=== PATIENT | female | born 1975 | race Two or more races ===

== ENCOUNTER 2024-11-13 15:22 | Emergency (ER) | payer MEDICAID, OTHER ==
[~2024-11-13] VITALS: Ht 177.8 cm; Wt 100.0 kg
[2024-11-13 16:33] VITALS: BP 148/82; PULSE 82; RESP 16; TEMP 98.9; O2SAT 99
--- NOTE | 2024-11-13 17:02 | DVH ---
CLINICAL INDICATION: possible fracture TECHNIQUE: 3-view XY L WRIST 3+ VIEW XRAY Comparison: None FINDINGS/IMPRESSION: : There is no evidence of acute fracture or dislocation. Soft tissues are unremarkable.
[2024-11-13] MEDS ORDERED: IBUP-1454 PO (17:07)
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
== END 2024-11-13 17:33 | disposition home or self-care (01) ==
LOC: ER 15:22
DX: S63.592A Other specified sprain of left wrist, initial encounter (principal); X58.XXXA Exposure to other specified factors, initial encounter; Y93.89 Activity, other specified; Y92.89 Other specified places as the place of occurrence of the external cause; Y99.8 Other external cause status
CPT/HCPCS: 73110

== ENCOUNTER 2024-11-18 13:07 | Inpatient (IN) | payer MEDICAID, OTHER ==
[~2024-11-18] VITALS: Ht 177.8 cm; Wt 104.9 kg
[~2024-11-18 13:07] MED LIST: IBUP-1454 PO
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
--- NOTE | 2024-11-18 13:49 | DVH ---
CHEST RADIOGRAPH Indication: CP Technique: Frontal and lateral view of the chest was obtained Comparison: None FINDINGS: Lines and Tubes: None Lungs: Mild bronchovascular crowding in the setting of hypoinflation. No evidence of focal airspace c onsolidations. Pleura: No effusion. No pneumothorax. Cardiomediastinal contours: Unremarkable Bones: No evidence of acute osseous abnormalities. Mild multilevel degenerative changes in the thor acic spine. IMPRESSION: No evidence of acute cardiopulmonary disease.
[2024-11-18 14:21] LABS: Eosinophils # (auto) 0.2 10 ^3/uL (0-0.8); Neutrophils # (auto) 4.1 10 ^3/uL (1.6-8.6); Nucleated Red Blood Cells % 0.1 %
[2024-11-18 14:23] LABS: Basophils # (auto) 0.1 10 ^3/uL (0-0.2); Basophils % (auto) 0.8 % (0.0-2.0); Eosinophils % (auto) 2.4 % (0.0-7.0); Hematocrit 37.8 % (36.0-46.0); Hemoglobin 12.3 g/dL (12.2-16.2); Lymphocytes # (auto) 1.8 10 ^3/uL (0.4-5.4); Mean Corpuscular Hemoglobin 25.5 pg (28.0-32.0); Mean Corpuscular Hgb Conc. 32.6 g/dL (32.0-36.0); Mean Corpuscular Volume 78.3 fL (80.0-100.0); Monocytes # (auto) 0.3 10 ^3/uL (0-1.3); Monocytes % (auto) 5.3 % (0.0-12.0); Neutrophils % (auto) 63.5 % (37.0-80.0); Platelet Count (auto) 185 10^3/uL (140-450); Red Blood Cells 4.82 10^6/uL (4.0-5.20); Red Cell Distribution Width 14.3 % (11.8-14.3); White Blood Cell 6.4 10^3/uL (4.4-10.8)
[2024-11-18 14:41] LABS: Alanine Aminotransferase 15 U/L (7-40); Albumin 4.1 g/dL (3.2-4.8); Alkaline Phosphatase 106 U/L (46-116); Anion Gap 6 (5-15); BUN/Creatinine Ratio 19.4 (10.0-20.0); Bilirubin, Total 0.3 mg/dL (0.2-1.0); Blood Urea Nitrogen 12 mg/dL (9-23); Calcium 9.8 mg/dL (8.7-10.4); Carbon Dioxide 30 mmol/L (20-31); Potassium 3.9 mmol/L (3.5-5.1); Sodium 143 mmol/L (136-145); Total Protein 6.8 g/dL (5.7-8.2)
[2024-11-18 14:53] LABS: Aspartate Aminotransferase 12 U/L (13-40); Chloride 107 mmol/L (98-107); Glucose 116 mg/dL (74-106)
[2024-11-18] MEDS: NITROGLYCERIN 0.4 MG SL TAB SL ONE (15:00)
[2024-11-18] MEDS: IOHEXOL 350 MG/ML 100ML IJ ONE (15:03)
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
[2024-11-18] MEDS: ASPirin-EC 325mg tab PO ONE (16:53)
[2024-11-18] MEDS ORDERED: ONDANSETRON HCL 4 MG/2 ML VIAL IV PRN (17:15)
[2024-11-18] MEDS ORDERED: MORPHINE SULFATE INJ 2 MG/ml SYRG IV PRN (17:15)
[2024-11-18] MEDS ORDERED: NITROGLYCERIN 0.4 MG SL TAB SL PRN (17:15)
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
[2024-11-18 18:31] LABS: Triglycerides 82 mg/dL (< 150)
[2024-11-18 18:32] LABS: LDL Cholesterol 98 mg/dL (< 100)
[2024-11-18 18:33] LABS: HDL Cholesterol 55 mg/dL (40-59)
[2024-11-18 18:34] LABS: Cholesterol 168 mg/dL (< 200)
[2024-11-18] MEDS: HYDROcodone-ACET 5/325MG TAB PO PRN (18:44)
[2024-11-18 20:11] LABS: Amphetamine Screen, Urine Neg (NEGATIVE); Barbiturate Scree,Urine Neg (NEGATIVE); Benzodiazephine Screen, Urine Neg (NEGATIVE); Cannabinoid Screen, Urine Neg (NEGATIVE); Cocaine Screen, Urine Neg (NEGATIVE); Opiate Scree,Urine Neg (NEGATIVE); Phencyclidine Screen, Urine Neg (NEGATIVE)
[2024-11-18 20:20] VITALS: BP 111/73; PULSE 74; RESP 16; TEMP 97.9; O2SAT 97
[2024-11-18 20:40] VITALS: BP 111/73; PULSE 74; RESP 16; TEMP 97.9; O2SAT 97
[2024-11-18 22:16] VITALS: BP 151/85; PULSE 76; RESP 18; TEMP 98.6; O2SAT 96
[2024-11-18] MEDS: ATORVASTATIN 20 MG TAB PO SCH (22:31)
[2024-11-18] MEDS: SERTRALINE HCL 50 MG TAB PO SCH (22:31)
[2024-11-18] MEDS: MORPHINE SULFATE INJ 2 MG/ml SYRG IV PRN (22:40)
[2024-11-19] VITALS (7 sets, daily range): BP systolic 121–168; BP diastolic 68–83; PULSE 67–75; RESP 18; TEMP 36.8; O2SAT 97–99
[2024-11-19 07:17] LABS: Basophils # (auto) 0 10 ^3/uL (0-0.2); Eosinophils # (auto) 0.2 10 ^3/uL (0-0.8); Hemoglobin 11.6 g/dL (12.2-16.2); Lymphocytes # (auto) 1.7 10 ^3/uL (0.4-5.4); Mean Corpuscular Hemoglobin 25.4 pg (28.0-32.0); Monocytes # (auto) 0.4 10 ^3/uL (0-1.3); Neutrophils # (auto) 3.5 10 ^3/uL (1.6-8.6); Nucleated Red Blood Cells % 0.1 %; Red Blood Cells 4.55 10^6/uL (4.0-5.20); Red Cell Distribution Width 14.4 % (11.8-14.3)
[2024-11-19 07:19] LABS: Basophils % (auto) 0.6 % (0.0-2.0); Eosinophils % (auto) 2.6 % (0.0-7.0); Hematocrit 35.7 % (36.0-46.0); Lymphocytes % (auto) 29.3 % (10.0-50.0); Mean Corpuscular Hgb Conc. 32.4 g/dL (32.0-36.0); Mean Corpuscular Volume 78.4 fL (80.0-100.0); Monocytes % (auto) 6.7 % (0.0-12.0); Neutrophils % (auto) 60.8 % (37.0-80.0); Platelet Count (auto) 154 10^3/uL (140-450); White Blood Cell 5.8 10^3/uL (4.4-10.8)
[2024-11-19 07:37] LABS: Alanine Aminotransferase 11 U/L (7-40); Albumin 3.7 g/dL (3.2-4.8); Alkaline Phosphatase 94 U/L (46-116); Anion Gap 7 (5-15); BUN/Creatinine Ratio 17.5 (10.0-20.0); Bilirubin, Total 0.5 mg/dL (0.2-1.0); Blood Urea Nitrogen 11 mg/dL (9-23); Calcium 9.5 mg/dL (8.7-10.4); Carbon Dioxide 30 mmol/L (20-31); Chloride 106 mmol/L (98-107); Glucose 95 mg/dL (74-106); Sodium 143 mmol/L (136-145); Total Protein 6.4 g/dL (5.7-8.2)
[2024-11-19 07:57] LABS: Aspartate Aminotransferase 10 U/L (13-40); Potassium 3.4 mmol/L (3.5-5.1)
[2024-11-19] MEDS: ASPirin 81 mg TAB PO SCH (09:26)
[2024-11-19] MEDS: ACETAMINOPHEN 325 MG TAB PO PRN (09:32)
[2024-11-19] MEDS: POTASSIUM EFFERVESENT TAB 25 MEQ PO ONE (12:36)
[2024-11-19] MEDS ORDERED: ACET-1882 PO (18:19)
[2024-11-19] MEDS ORDERED: IBUP1TAB5 PO (18:19)
[2024-11-19] MEDS ORDERED: PANT40T PO (18:19)
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
--- NOTE | 2024-11-20 08:18 | DVHSR ---
APPROVED REPORT EXAM: Two-dimensional and M-mode echocardiogram with Doppler and color Doppler. Blood Pressure: 127/68 mmHg INDICATION Chest Pain RISK FACTORS Height: 5' 10", Weight: 231 DIMENSIONS LVDd4.0 (3.8-5.7cm)LA (2D)4.3 (1.9-4.0cm)Aortic Root3.3 (2.0-3.7cm) LVDs2.7 (2.5-4.0cm)LA (MM) (1.9-4.0cm)Aortic Cusp Exc2.0 (1.5-2.0cm) EF (%) 63.0 (55-70%)Rt. Atrium4.3 (1.9-4.0cm)Asc. Aorta cm IVSd1.2 (0.7-1.1cm)RV (D) (1.8-2.4cm) PWd1.1 (0.7-1.1cm) Mitral Valve MitralMitral Stenosis E wave0.90m/sMV Mean GR.mmHg A wave0.90m/sMV Peak GR.mmHg E/A ratio1.02D MVAcm2 Aortic Valve Aortic ValveAortic Stenosis V10.90m/Corazon Mean GR.4mmHg V21.40m/Corazon Peak GR.9mmHg LVOT Diameter2.3 (1.8-2.4cm)Doppler AVA2.67cm2 Pulmonic Valve V20.70m/s Conclusion lvef 60% by visual estimate normal rv function but mdoerate enlargement enlarged left l atria normal pericardium no severe valve abnormalities noted
--- NOTE | 2024-11-20 11:26 | ECG ---
[facility] Test Date: 2024-11-18 Test Time: 13:21:18 Pat Name: BALBIR MELTON Department: ER Room: 0272T Gender: F Clinical Informaticist: CORIE : 1975 Requested By: RAJ RUBY Order Number: [id number] Reading MD: Measurements Intervals [place] Rate: 92 P: 45 NV: 175 QRS: -23 QRSD: 93 T: 28 QT: 386 QTc: 478 Interpretive Statements Sinus rhythm Probable left atrial enlargement Borderline left axis deviation Low voltage, precordial leads Consider anterior infarct Baseline wander in lead(s) II,III,aVR,aVF Please click the below link to view image of tracing.
== END 2024-11-19 19:21 | disposition home or self-care (01) | DRG 347 ==
LOC: ER 13:07 → MERGE 17:10 → EDBD 17:10 → OVERFLOW 17:10 → TELE-WESTW 21:51
PROVIDERS: ADMIT Hospitalist; ATTEND Hospitalist
DX: M48.54XA Collapsed vertebra, not elsewhere classified, thoracic region, initial encounter for fracture (principal); E28.319 Asymptomatic premature menopause; F32.A Depression, unspecified; M79.7 Fibromyalgia; Z79.899 Other long term (current) drug therapy; Z92.21 Personal history of antineoplastic chemotherapy; Z92.3 Personal history of irradiation; Z96.651 Presence of right artificial knee joint; Z85.41 Personal history of malignant neoplasm of cervix uteri; Z80.7 Family history of other malignant neoplasms of lymphoid, hematopoietic and related tissues; M81.0 Age-related osteoporosis without current pathological fracture
CPT/HCPCS: 36415; 71046; 71275; 80053; 80061; 80307; 83036; 83880; 84443; 84484; 85025; 85379; 93005; 93306; G0378

== ENCOUNTER → 2025-04-30 | Day surgery (SDC) | payer MEDICAID ==
[2025-04-25 11:11] LABS: Hematocrit 42.5 % (36.0-46.0); Hemoglobin 13.8 g/dL (12.2-16.2); Mean Corpuscular Hemoglobin 27.1 pg (28.0-32.0); Mean Corpuscular Volume 83.2 fL (80.0-100.0); Nucleated Red Blood Cells % 0.2 %
[2025-04-25 11:32] LABS: Urine Protein, UAD TRACE (Negative)
[2025-04-25 11:48] LABS: INR 1.0 (0.9-1.15); Partial Thromboplastin Time 29.3 SEC (24.5-34.5); Prothrombin Time 10.6 sec (9.3-11.8)
[2025-04-25 11:54] LABS: Alanine Aminotransferase 21 U/L (7-40); Alkaline Phosphatase 101 U/L (46-116); Anion Gap 9 (5-15); BUN/Creatinine Ratio 11.6 (10.0-20.0); Calcium 10.2 mg/dL (8.7-10.4); Carbon Dioxide 29 mmol/L (20-31); Chloride 103 mmol/L (98-107); Glucose 90 mg/dL (74-106); Potassium 3.5 mmol/L (3.5-5.1); Sodium 141 mmol/L (136-145); Total Protein 7.5 g/dL (5.7-8.2)
[2025-04-25 11:55] LABS: Albumin 4.4 g/dL (3.2-4.8); Bilirubin, Total 0.5 mg/dL (0.2-1.0)
[2025-04-25 11:57] LABS: Blood Urea Nitrogen 8 mg/dL (9-23)
[~2025-04-30] VITALS: Ht 177.8 cm; Wt 108.9 kg
[~2025-04-30] MED LIST changes: +FLUMAZENIL 0.1 MG/ML INJ 10ML MDV IV PRN; +GLYCOPYRROLATE 0.2 MG/ML 1ML VIAL ONE; +HYDR-4072 PO; +HYDROmorphone HCL 2 MG/ML VL/or syr IV PRN; -IBUP-1454 PO; +KETAMINE 50mg/ML 1ml syringe ONE; +KETOROLAC TROMETH 30 MG/ML 1ML VIAL ONE; +LIDOCAINE 1% INJ PF 5ML AMP ONE; +MILN50TA PO; +NALOXONE HCL 0.4 MG/ML VIAL IV PRN; +ONDANSETRON HCL 4 MG/2 ML VIAL IV PRN; +ONDANSETRON HCL 4 MG/2 ML VIAL ONE; +PROPOFOL 10 MG/ML 20 ML IV ONE; +SERT25TA28 PO; +SUMA100T15 PO; +ceFAZolin 2 GM/D5W50ml 50 ML IV ONE; +fentaNYL CITRATE 100 MCG/2 ML VL IV PRN; +hydrALAZINE HCL 20 MG/ML VL IV PRN
[2025-04-30] MEDS: LIDOCAINE 1% HCL (LOCAL ANESTH.) INJ 20ML MDV ONE (08:19)
[2025-04-30] MEDS: BUPIVACAINE HCL 0.25% P/F 10 ML VIAL ONE (08:19)
[2025-04-30 08:30] VITALS: PULSE 82; RESP 15; TEMP 97.6; O2SAT 92
--- NOTE | 2025-05-01 13:01 | DVHOP2 ---
Operative Report - 2 Report Details Date: 05/01/25 Preop Diagnosis: Left Dequervain tendonitis, bony osteophyte at radial styloid Postop Diagnosis: Left Dequervain tendonitis, bony osteophyte at radial styloid Surgeon: Erick Arana MD Automobile Tester: Farhan PAVON Anesthesia: Regional Consent: The patient was informed of the risks and benefits of the procedure. These include but are not limited to complications of anesthesia, postoperative infection, incomplete relief of symptoms, recurrence of symptoms, damage to blood vessels, nerves and tendons, deep venous thrombosis, pulmonary embolism and possible need for repeat surgery in the future. Estimated Blood Loss: 2 cc Name of Procedure Performed 1. Left Dequervain tendon release 2. left extensor tendon debridement 3. Left radial styloid osteophyte removal Procedure Details Procedure Details: The patient is a [__]-year-old [male/female] with chronic pain and swelling over the radial styloid consistent with De Quervains tenosynovitis. The condition failed to respond to conservative treatment including splinting, NSAIDs, and corticosteroid injections. The decision was made to proceed with surgical release. Procedure: After informed consent, the patient was brought to the operating room and positioned supine. A regional block/local anesthesia with sedation was administered. The left upper extremity was prepped and draped in sterile fashio n. A tourniquet was applied and inflated to [__] mmHg after exsanguination (if used). A longitudinal (or transverse/radial) skin incision approximately 23 cm in length was made over the radial styloid. Dissection was carried through the subcutaneous tissue with care to identify and protect the superficial branch of the radial nerve. The first dorsal compartment was identified. The extensor retinaculum over the first dorsal compartment was incised longitudinally to decompress the underlying tendons. The abductor pollicis longus (APL) and extensor pollicis brevis (EPB) tendons were identified. [Optional: In cases where EPB was found in a separate subcompartment, that sheath was also released to ensure full decompression.] All tendon slips were freed and allowed to glide freely. Full release was confirmed by visualizing the tendons moving without restriction through a full range of thumb and wrist motion. Hemostasis was achieved. The wound was irrigated with saline and closed with interrupted 4-0 nylon sutures. A sterile dressing and a thumb spica splint were applied. The patient tolerated the procedure well and was transferred to recovery in stable condition. Disposition Home ERICK ARANA MD May 01, 2025 13:01
== END | disposition home or self-care (01) ==
LOC: SUR 07:26
PROVIDERS: ATTEND Orthopaedic Surgery Adult Reconstructive Orthopaedic Surgery
DX: M65.4 Radial styloid tenosynovitis [de Quervain] (principal); M25.742 Osteophyte, left hand; G43.909 Migraine, unspecified, not intractable, without status migrainosus; G89.29 Other chronic pain; Z98.890 Other specified postprocedural states
CPT/HCPCS: 25000; 36415; 80053; 81001; 85025; 85610; 85730; J0690; J1100; J1885; J2003; J2405; J2704; J3490

== ENCOUNTER 2025-06-28 08:25 | Outpatient (CLI) | payer MEDICAID ==
[~2025-06-28 08:25] MED LIST changes: -FLUMAZENIL 0.1 MG/ML INJ 10ML MDV IV PRN; -GLYCOPYRROLATE 0.2 MG/ML 1ML VIAL ONE; -HYDROmorphone HCL 2 MG/ML VL/or syr IV PRN; -KETAMINE 50mg/ML 1ml syringe ONE; -KETOROLAC TROMETH 30 MG/ML 1ML VIAL ONE; -LIDOCAINE 1% INJ PF 5ML AMP ONE; -NALOXONE HCL 0.4 MG/ML VIAL IV PRN; -ONDANSETRON HCL 4 MG/2 ML VIAL IV PRN; -ONDANSETRON HCL 4 MG/2 ML VIAL ONE; -PROPOFOL 10 MG/ML 20 ML IV ONE; -ceFAZolin 2 GM/D5W50ml 50 ML IV ONE; -fentaNYL CITRATE 100 MCG/2 ML VL IV PRN; -hydrALAZINE HCL 20 MG/ML VL IV PRN
[2025-06-28 09:05] LABS: Hematocrit 36.1 % (36.0-46.0); Hemoglobin 12.3 g/dL (12.2-16.2); Mean Corpuscular Hemoglobin 26.5 pg (28.0-32.0); Mean Corpuscular Volume 77.9 fL (80.0-100.0); Nucleated Red Blood Cells % 0.1 %
[2025-06-28 10:01] LABS: Amphetamine Screen, Urine Neg (NEGATIVE); Barbiturate Scree,Urine Neg (NEGATIVE)
[2025-06-28 10:02] LABS: Alanine Aminotransferase 17 U/L (7-40); Albumin 4.3 g/dL (3.2-4.8); Alkaline Phosphatase 97 U/L (46-116); Anion Gap 9 (5-15); BUN/Creatinine Ratio 16.4 (10.0-20.0); Benzodiazephine Screen, Urine Neg (NEGATIVE); Blood Urea Nitrogen 10 mg/dL (9-23); Calcium 9.4 mg/dL (8.7-10.4); Cannabinoid Screen, Urine Neg (NEGATIVE); Carbon Dioxide 30 mmol/L (20-31); Chloride 106 mmol/L (98-107); Cocaine Screen, Urine Neg (NEGATIVE); Glucose 86 mg/dL (74-106); Opiate Scree,Urine Pos (NEGATIVE); Phencyclidine Screen, Urine Neg (NEGATIVE); Sodium 145 mmol/L (136-145); Total Protein 7.8 g/dL (5.7-8.2); Triglycerides 57 mg/dL (< 150)
[2025-06-28 10:03] LABS: Bilirubin, Total 0.4 mg/dL (0.2-1.0); Cholesterol 189 mg/dL (< 200); HDL Cholesterol 57 mg/dL (40-59); Potassium 3.4 mmol/L (3.5-5.1)
[2025-06-29 12:07] LABS: Chlamydia Trachomatis, NAA Negative (Negative); Neisseria gonorrhoeae, NAA Negative (Negative)
[2025-06-29 13:02] LABS: Hepatitis A Total Antibody Negative (Negative); Hepatitis B Surface Antigen Negative (Negative); Hepatitis C Antibody Negative (Negative)
== END 2025-06-28 17:00 | disposition home or self-care (01) ==
LOC: LAB 08:25
PROVIDERS: ATTEND Licensed Practical Nurse
DX: I10 Essential (primary) hypertension (principal); E78.2 Mixed hyperlipidemia; E55.9 Vitamin D deficiency, unspecified; R53.83 Other fatigue; Z13.6 Encounter for screening for cardiovascular disorders; Z11.3 Encounter for screening for infections with a predominantly sexual mode of transmission; Z13.1 Encounter for screening for diabetes mellitus
CPT/HCPCS: 36415; 80053; 80061; 80307; 82043; 82306; 82607; 83036; 84443; 85025; 86703; 86704; 86706; 86708; 86780; 86803; 87340